=== PATIENT | female | born 2000 | race Caucasian/White ===

== ENCOUNTER 2022-05-21 16:33 | Emergency (ER) | payer OTHER, SELFPAY ==
--- NOTE | 2022-05-21 16:36 | ED.HEATRA ---
HPI - Head Injury General Chief complaint: Head Injury Stated complaint: Head Injury Time Seen by Provider: 05/21/22 16:35 Source: patient Mode of arrival: ambulatory Limitations: no limitations History of Present Illness HPI Narrative: Ms. Noel is a 22-year-old female patient presenting to the clinic today with complaints of possible head injury. She reports that she hit her head when getting into a fair ride on . She denies any loss of consciousness however she felt faint, had a headache, and was dizzy after hitting her head. Yesterday she started having nausea and vomiting. Today she states she still has a headache and is concerned about a concussion. 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 Related Data Home Medications Medication Instructions Recorded Confirmed levonorgestrel-ethinyl estradiol 1 tablet PO DIRECTED 05/21/22 05/21/22 0.1 mg-20 mcg tablet (Vienva) Allergies Allergy/AdvReac Type Severity Reaction Status Date / Time No Known Allergies Allergy Verified 05/21/22 16:56 Review of Systems Review of Systems: Pertinent positives per HPI. Patient denies any fever, chills, rash, visual changes, cough, runny nose, sore throat, shortness of breath, chest pain, palpitations, diarrhea, constipation, abdominal pain, or any urinary issues. PMFSH Comments At the time of my signature, I reviewed and agree with the nursing past medical, surgical, social, and family history. There is no relevant family history pertinent to the patient complaint. Exam Narrative: General: Well-developed, well nourished, in no apparent distress Head: Normocephalic, atraumatic Eyes: Pupils equally round and reactive to light bilaterally, EOM intact, sclera and conjunctive clear, no discharge, lids normal Ears: TMs intact and clear, ear canals clear, no drainage, grossly hearing normal. Nose: Nares patent, no discharge, no inflammation, no sinus tenderness. Mouth: Oropharynx without lesions or masses, good dentition, MMM. Neck: Supple, trachea midline, no enlargement of anterior or posterior cervical nodes, no thyroid masses or goiter palpable. Cardio: Regular rate and rhythm, s1 and s2 normal, no murmur appreciated. Resp: Clear to auscultation bilaterally anteriorly and posteriorly, no rhonchi, rales, wheezing or rubs Neuro: Equal and strong strengths in bilateral upper and lower extremities, extremities with purposeful movement, smile symmetric, tongue is midline, negative Romberg, normal gait and station Course Course Emergency Course: Portions of this record may have been created with voice recognition software. Level of Care: Express Care Visit Vital Signs Vital signs: Vital signs reviewed MDM - Head Injury MDM Narrative Medical decision making narrative: At the time of visit patient was resting comfortably on the exam table. I suspect the patient has concussion with a closed head injury. Discussed going back to work and decreasing stimuli and patient voiced understanding. Supportive measures were discussed with the patient she voiced understanding. I will send her in a prescription for some Zofran for nausea. She is to follow-up with her PCP in 3 to 5 days if symptoms persist or go to the emergency room if they worsen. Differential Diagnosis Differential diagnosis: Likely concussion without loss of consciousness, closed head injury and postconcussion syndrome Discharge Plan Discharge Clinical Impression: Closed head injury, Concussion without loss of consciousness Patient Disposition: Home, Self-Care Condition: Stable Instructions: Antibiotic Form, Concussion (ED), Head Injury (ED) Additional Instructions: Go home and rest in a cool dark place Tylenol or Motrin as needed for pain Increase fluids and stay well-hydrated Decrease stimuli- TV screens, computer screens, and cell phone- gradually increase by 30 minutes to 1 hour per day.
[2022-05-21 16:47] VITALS: BP 133/89; PULSE 78; RESP 16; TEMP 36.6; O2SAT 100
== END 2022-05-21 17:05 | disposition home or self-care (01) ==
LOC: EXPCOLL 16:41
PROVIDERS: Emergency Provider Nurse Practitioner Family
DX: S06.0X0A Concussion without loss of consciousness, initial encounter (principal); W22.8XXA Striking against or struck by other objects, initial encounter
CPT/HCPCS: 99203; G0463

== ENCOUNTER 2024-04-11 20:42 | Emergency (ER) | payer OTHER, SELFPAY ==
[2024-04-11 20:48] VITALS: BP 135/96; PULSE 91; RESP 20; TEMP 36.7; O2SAT 100
--- NOTE | 2024-04-11 21:40 | PC.NURSE ---
Patient states that dog that bit her ran off. Patient also states that dog had collar with multiple tags.
--- NOTE | 2024-04-11 23:04 | ED.ANIMALBIT ---
HPI - Animal Bite General Chief Complaint: Animal Bite Stated Complaint: dog bite Time Seen by Provider: 04/11/24 22:26 History of Present Illness HPI narrative: Patient is a 24-year-old female who presents to the emergency department this evening after a dog bite. Patient states she was walking her dog when another dog came initially to play with her dog. Her dog is a little bit aggressive and started to his at the other dog which then made the other dog nervous and they started to fight it. Patient was trying to break the fight and accidentally got bit in her right forearm by the neighborhood dog. Patient states that she is not from this neighbor heard. No ulnar was noted with the dog. Dog was wearing a collar and did have attacks within for motion on them. She has of unsure of the immunization status of the dog. Patient states that his dog was not this hyper cell waiting or aggressive, he was friendly until her dog provoked him no additional injuries or concerns at this time. This happened approximately 2 days ago and patient tried to wash out the wound at home but has noticed some redness and swelling today and was concerned for an infection so she decided to come in. Related Data Home Medications Medication Instructions Recorded Confirmed levonorgestrel-ethinyl estradiol 1 tablet PO DIRECTED 05/21/22 05/21/22 0.1 mg-20 mcg tablet (Vienva) Allergies Allergy/AdvReac Type Severity Reaction Status Date / Time nickel Allergy Blister Verified 04/11/24 21:14 Review of Systems Review of Systems: All systems are reviewed and are negative unless stated otherwise in the HPI. Exam Narrative: General: Alert, awake, afebrile, in no acute distress. HEENT: PERRL, no rhinorrhea, no post nasal drip, oropharynx clear. Cardiovascular: Regular rate and rhythm, no murmurs, rubs or gallops, no peripheral edema. Respiratory: Clear to auscultation bilaterally, no tachypnea, no wheezing, no rhonchi, no rubs, no respiratory distress. Abdomen: Soft, nontender, nondistended, no rebound, no guarding, no peritoneal signs. Musculoskeletal: No joint swelling or deformity, normal muscle tone. Skin: 2 small superficial abrasions to right forearm with moderate surrounding edema and minimal erythema. Neurological: Alert and oriented to person, place, and time. Follows all commands. No focal deficits, speech is clear and fluent. Course Vital Signs Vital signs: Vital Signs Temperature 98.1 F 04/11/24 20:48 Pulse Rate 91 04/11/24 20:48 Respiratory Rate 20 04/11/24 20:48 Blood Pressure 135/96 H 04/11/24 20:48 Pulse Oximetry 100 04/11/24 20:48 Oxygen Delivery Room Air 04/11/24 20:48 Temperature 98.1 F 04/11/24 20:48 Pulse Rate 85 04/11/24 23:19 Respiratory Rate 15 04/11/24 23:19 Blood Pressure 130/82 04/11/24 23:19 Pulse Oximetry 100 04/11/24 23:19 Oxygen Delivery Room Air 04/11/24 20:48 MDM - Animal Bite MDM Narrative Medical decision making narrative: The patient was evaluated by myself in the emergency department. History is obtained from patient who is an independent historian and physical exam was performed. External medical records were reviewed at this time. Patient was administered her 1st dose of Augmentin in the emergency department and instructed that a script will be sent to her pharmacy to take for the next 10 days. Patient's tetanus shot is up-to-date. Differential diagnosis considerations include lacerations, abrasions, and cellulitis. Comorbidities impacting this visit include none. At this time, extended conversation with patient regarding rabies vaccination was initiated. Patient is refusing any rabies status she does not believe that the dog had rabies since he had a collar and was not aggressive and attack was not provoked. I have evaluated and discussed social determinants of health with the patient that could potentially impact subsequent diagnosis and treatme
[2024-04-11] MEDS: AMOXICILLIN/CLAVULANATE K 875-125 MG TAB 1 TABLET PO (23:12)
[2024-04-11 23:19] VITALS: BP 130/82; PULSE 85; RESP 15; O2SAT 100
== END 2024-04-11 23:19 | disposition home or self-care (01) ==
PROVIDERS: Emergency Provider Emergency Medicine
DX: S51.851A Open bite of right forearm, initial encounter (principal); W54.0XXA Bitten by dog, initial encounter
CPT/HCPCS: 99283; A9270